=== PATIENT | male | born 1965 | race Two or more races ===

== ENCOUNTER 2019-06-20 14:32 | Emergency (ER) | payer SELFPAY ==
[~2019-06-20] VITALS: Ht 175.3 cm; Wt 104.3 kg
[2019-06-20 14:32] VITALS: BP_SYST 174
--- NOTE | 2019-06-20 14:32 | NUR ---
BROUGHT IN BY [facility], PLACED IN HALLWAY AND TRIAGED. REPORT GIVEN TO JODI
--- NOTE | 2019-06-20 15:40 | NUR ---
ER Dr. Cesar at bedside examining patient.
[2019-06-20 15:46] VITALS: BP_SYST 161
--- NOTE | 2019-06-20 15:46 | NUR ---
diPatient and Newell given written and verbal discharge instructions and verbalizes understanding. ER MD discussed with patient the results and treatment provided. Patient in stable condition. ID arm band removed. No Rx given. Patient educated on pain management and to follow up with PMD. Pain Scale 0/10. Opportunity for questions provided and answered.
== END 2019-06-20 15:46 | disposition home or self-care (01) ==
LOC: SED 14:32
DX: Z02.89 Encounter for other administrative examinations (principal)
CPT/HCPCS: 99283